=== PATIENT | female | born 1980 | race Caucasian/White ===

== ENCOUNTER 2024-03-27 04:06 | Observation (INO) | payer BC ==
[~2024-03-27] VITALS: Ht 162.6 cm; Wt 63.9 kg
[2024-03-27] VITALS (12 sets, daily range): BP systolic 90–121; BP diastolic 50–84
[2024-03-27] MEDS ORDERED: SODIUM CHLORIDE 0.9% 1,000 ML IV ONE (04:30)
[2024-03-27] MEDS ORDERED: MORPHINE SULFATE 4 MG/ML VIAL IV ONE ×2 (04:30→06:00)
[2024-03-27] MEDS ORDERED: ondansetron HCL 4 MG/2 ML VIAL IV ONE (04:30)
[2024-03-27 04:47] LABS: BASOPHILS 0.3 % (0-2); BILIRUBIN, URINE NEGATIVE (negative); BLOOD/HGB, URINE TRACE-I (Negative); HEMATOCRIT 38.8 % (35.0-50.0); HEMOGLOBIN 13.3 g/dL (12.0-18.0); KETONE, URINE SMALL (Negative); LEUK ESTERASE, URINE NEGATIVE (negative); LYMPHOCYTES 4.5 % (24-44); MCH 30.6 (27-36); MCHC 34.2 g/dl (30-36); MCV 89.5 fl (81-99); MONOCYTES 4.3 % (0-12); NEUTROPHILS 90.9 % (39-80); NITRITE, URINE NEGATIVE (negative); PLATELET COUNT 212 K/uL (140-440); RBC 4.34 M/ul (4.3-5.7); RDW 13.1 (10.5-15.0)
[2024-03-27 05:07] LABS: BACTERIA, URINE 1+ /hpf (negative); CASTS, URINE NONE SEEN \\lpf; COLLECTION TYPE, URINE CLEAN CATCH; CRYSTALS, URINE NONE SEEN (0-1+); EPITHELIAL CELLS, URINE SQUAMOUS 1+ /lpf (0-1+); REFLEX CULTURE, URINE No (No)
[2024-03-27 05:09] LABS: ALBUMIN 3.8 g/dL (3.4-5.0); ALBUMIN/GLOBULIN RATIO 1.19 (1.1-2.4); ANION GAP 14.5 (7-21); BILIRUBIN, TOTAL 0.7 ng/dL (0.2-1.0); BUN/CREATININE RATIO 14.28 (6.0-28.6); CALCIUM 8.5 mg/dL (8.5-10.1); CREATININE, SERUM 0.91 mg/dL (0.55-1.02); POTASSIUM 3.5 mmol/L (3.5-5.1)
[2024-03-27] MEDS ORDERED: CEFTRIAXONE/SODIUM CHLORIDE 2 GM/100 ML PIGGYBACK IV SCH (06:00)
[2024-03-27] MEDS ORDERED: ondansetron HCL 4 MG/2 ML VIAL IV PRN ×2 (06:00→07:00)
[2024-03-27] MEDS ORDERED: HYDROmorphone HCL 1 MG/ML SYR IV PRN ×2 (06:00→07:00)
[2024-03-27] MEDS ORDERED: DEXTROSE 5% - LACTATED RINGERS 1,000 ML IV SCH ×2 (06:00→07:00)
[2024-03-27] MEDS ORDERED: ACETAMINOPHEN 325 MG TAB PO PRN ×2 (06:00→07:00)
[2024-03-27] MEDS ORDERED: ACETAMINOPHEN 650 MG SUPP PR PRN (07:00)
[2024-03-27] MEDS ORDERED: PROCHLORPERAZINE EDISYLATE 10 MG/2 ML VIAL IV PRN (07:00)
--- NOTE | 2024-03-27 07:07 | NUR ---
BEDSIDE REPORT RECIEVED FROM VINCENT SMITH. PT AWAKE AND ALERT IN BED. VISITORS X2 IN ROOM. CALL LIGHT IN REACH, NO REQUESTS AT THIS TIME.
--- NOTE | 2024-03-27 07:08 | NUR ---
REPORT RECEIVED FROM FASHION CONSULTANT NURSE. PT. LAYING IN BED, EYES OPEN, FAMILY AT BEDSIDE. CALL LIGHT WITHIN REACH.
--- NOTE | 2024-03-27 07:31 | NUR ---
RECEIVED REPORT FROM VINCENT MIJARES FROM ED @ 5397. NC ARRIVED VIA STRETCHER, SELF TRANSFERED TO BED, RA, A/O. PT FATHER IN ROOM, PT SISTER IS EMPLOYED BY HOSPITAL. EDUCATED [employer] MAINFRAME DEVELOPER LIGHT, POC; DR JONES IN TO SEE PT WHILE THIS RN IN ROOM. ABX INFUSING FROM ED. IV LAC FLUSHES WELL. INTACT; PT STATED SHE WOULD LIKE SOMETHING FOR PAIN. REPORTED OFF TO AM VINCENT VILLANUEVA, AND IS AWARE OF THE NEED FOR PAIN MEDICATION.
[2024-03-27] MEDS ORDERED: CEFEPIME HCL/D5W 1 GM/100 ML PIGGYBACK IV SCH (08:00)
--- NOTE | 2024-03-27 08:00 | NUR ---
FULL ASSESSMENT COMPLETED AND MEDICATIONS ADMINISTERED. PT. COMPLAINS OF 6/10 PAIN. DILAUDID GIVEN FOR PAIN. FAMILY AT BEDSIDE. CALL LIGHT WITHIN REACH. PT. DENIES ANY OTHER NEEDS AT THIS TIME.
--- NOTE | 2024-03-27 08:02 | NUR ---
PATIENT IN BED RESTING AT THIS TIME. CALL LIGHT WITHIN REACH, NO FURTHER NEEDS AT THIS TIME.
[2024-03-27] MEDS ORDERED: PANTOPRAZOLE SODIUM 40 MG/10 ML VIAL IV SCH (09:00)
[2024-03-27] MEDS ORDERED: ENOXAPARIN SODIUM 40 MG/0.4 ML SYR SUB-Q SCH (09:00)
--- NOTE | 2024-03-27 09:05 | NUR ---
PATIENT IN DAY SURGERY DEPARTMENT AT THIS TIME. UNABLE TO COMPLETE ASSESSMENT.
[2024-03-27] MEDS ORDERED: ROCURONIUM BROMIDE 50 MG/5 ML SYR ONE (09:28)
[2024-03-27] MEDS ORDERED: ondansetron HCL 4 MG/2 ML VIAL ONE (09:28)
[2024-03-27] MEDS ORDERED: LIDOCAINE HCL 2% 5 ML SDV ONE ×2 (09:28→10:10)
[2024-03-27] MEDS ORDERED: propofoL 200 MG/20 ML VIAL ONE (09:28)
[2024-03-27] MEDS ORDERED: fentaNYL citrate 100 MCG/2 ML VIAL ONE (09:28)
[2024-03-27] MEDS ORDERED: DEXAMETHASONE SOD PHOS 4 MG/ML VIAL ONE (09:28)
[2024-03-27] MEDS ORDERED: ACETAMINOPHEN 1,000 MG/100 ML VIAL ONE (09:31)
--- NOTE | 2024-03-27 09:53 | CONS ---
[facility] [address], [place] [address] Signed DATE OF CONSULTATION: 03/27/2024 CHIEF COMPLAINT: Right lower quadrant abdominal pain. HISTORY OF PRESENT ILLNESS: Marisa is a 44-year-old female, who about half a day ago started to develop right lower quadrant abdominal pain with nausea. She came to emergency room for evaluation. Vital signs were stable. She is tender in the right lower quadrant. White count was elevated. CT scan confirmed a 10 mm appendix with some moderate periappendiceal inflammation and fluid. I have been asked to admit her as a general surgeon on-call. She has received IV fluids, Rocephin and Flagyl. Overall, she is feeling a little better. PAST MEDICAL HISTORY: Polycystic ovarian syndrome. PAST SURGICAL HISTORY: None. SOCIAL HISTORY: She does not smoke. She has an occasional drink. She is and has no children. She works for [employer]. She has no primary care provider. She has no shader and toner. She prefers the [facility]. Ranulfo Corona is her sister at [phone]. FAMILY HISTORY: None. REVIEW OF SYSTEMS: None. ALLERGIES: None. MEDICATIONS: Hormone replacement therapy per her pharmacist. PHYSICAL EXAMINATION: VITAL SIGNS: Her blood pressure is 123/80, heart rate 81, respiratory rate 18, temperature 98.6, she 97% on room air, she is 5 feet 4 inches and 61 kg with a body mass index of 23. GENERAL: Melania is a 44-year-old female , who appears healthy in her stated age. She Electronically Signed By: ROSARIO HERNANDEZ MD 03/27/24 0953 PATIENT NAME: MARISA NOEL CONSULTATION DATE OF : 78 REPORT #: [id number] PHYSICIAN: ROSARIO HERNANDEZ MD PCP: NO PRIMARY CARE PHYSICIAN REPORT IS CONFIDENTIAL AND NOT TO BE RELEASED WITHOUT AUTHORIZATION [facility] [address], [place] [address] Signed is not systemically ill or toxic. LUNGS: Clear to auscultation bilaterally. HEART: Regular rate and rhythm without murmurs. ABDOMEN: Soft and flat. She is tender in the right lower quadrant. LABORATORY DATA: Her white blood count 19.1, neutrophils 90. Electrolytes unremarkable. Urinalysis with some ketones. Liver function tests are negative. Beta-hCG is negative. Albumin 3.8. RADIOGRAPHIC STUDIES: CT scan and pelvis shows a 10 mm appendix with some moderate periappendiceal inflammation and fluid. ASSESSMENT AND PLAN: Melania is a 44-year-old female, who presents with acute appendicitis. She has been admitted, started on antibiotics and IV fluids. I have reviewed with her the above findings along with her sister and her dad. I also brought a brochure of the appendix. We have reviewed the location of function of the appendix. We have discussed laparoscopic versus open appendectomy. We have reviewed the expected intraop and postop course. There is risk including, but not limited to bleeding, infection, scarring, change in contour of the skin, damage to bowel, appendiceal stump leak, postoperative intraabdominal abscess, incisional hernias and other unforeseen comorbidities. She has expressed understanding and would like to proceed with surgery today. Rosario Hernandez MD ALB/MODL /[id number] cc: Rosario Hernandez MD Patient's Chart Copies: ROSARIO HERNANDEZ MD ~ Electronically Signed By: ROSARIO HERNANDEZ MD 03/27/24 0953 PATIENT NAME: MARISA NOEL CONSULTATION DATE OF : 78 REPORT #: [id number] PHYSICIAN: ROSARIO HERNANDEZ MD PCP: NO PRIMARY CARE PHYSICIAN REPORT IS CONFIDENTIAL AND NOT TO BE RELEASED WITHOUT AUTHORIZATION
--- NOTE | 2024-03-27 09:53 | NUR ---
PT LEAVES UNIT WITH VINCENT EVANS TO OR FOR PROCEDURE.
[2024-03-27] MEDS ORDERED: ENSKYCE1 EACH PO (10:05)
[2024-03-27] MEDS ORDERED: LIDOCAINE 1% W/ EPI 1:200,000 30 ML SDV ONE (10:05)
[2024-03-27] MEDS ORDERED: BIOTIN PLUS KE1 EACH PO (10:05)
[2024-03-27] MEDS ORDERED: BUPIVACAINE HCL 0.25% 50 ML MDV ONE (10:06)
[2024-03-27] MEDS ORDERED: VITAMIN D325 MC4 PO (10:06)
[2024-03-27] MEDS ORDERED: WOMEN MULTIVIT1 EACH PO (10:06)
--- NOTE | 2024-03-27 10:06 | NUR ---
MED REC COMPLETE
[2024-03-27] MEDS ORDERED: MAGNESIUM SULFATE 1 GM/2 ML VIAL ONE (10:10)
[2024-03-27] MEDS ORDERED: KETAMINE in NS 50 MG/5 ML SYR ONE (10:10)
[2024-03-27] MEDS ORDERED: SCOPOLAMINE 1 MG/3 DAYS PATCH 1 EACH TDSY ONE (10:10)
[2024-03-27] MEDS ORDERED: METOCLOPRAMIDE HCL 10 MG/2 ML SDV ONE (10:10)
[2024-03-27] MEDS ORDERED: SODIUM CHLORIDE 0.9% 40 ML IV ONE (10:11)
[2024-03-27] MEDS ORDERED: dexmedeTOMIDine HCl 200 MCG/2 ML VIAL ONE (10:12)
[2024-03-27] MEDS ORDERED: KETOROLAC TROMETHAMINE 30 MG/ML VIAL ONE (10:19)
[2024-03-27] MEDS ORDERED: SUGAMMADEX SODIUM 200 MG/2 ML ML ONE (11:32)
--- NOTE | 2024-03-27 11:39 | NUR ---
UR CLINICAL REVIEW: [facility]- MEETS INPT CRITERIA SELF PAY- WILL ASSESS FOR FINANCIAL SERVICES OBS 03/27/24 @ 0701 ORDER MATCHES REG NO AUTH REQUIRED PATIENT IS SELF PAY DISCHARGE TO HOME WHEN STABLE 03/28/24
--- NOTE | 2024-03-27 11:59 | NUR ---
03/27/24 Danisha Lockwood 1148- PT ARRIVES TO PACU EASILY AROUSABLE TO VOICE. PT FALLS INSTANTLY BACK TO SLEEP WHEN NOT BEING TALKED TO. RESP EVEN AND UNLABORED. OXYGEN SAT HIGH 90'S ON RA. 1152- PT IS ABLE TO ANSWER QUESTIONS. PT REPORTS NO PAIN OR NAUSEA. PT STATES SHE DOES NOT WANT TO OPEN HER EYES SHE DOES NOT WANT TO GET NAUSEOUS.
[2024-03-27] MEDS ORDERED: IBUPROFEN 800 MG TAB PO PRN (12:15)
[2024-03-27] MEDS ORDERED: HYDROCODONE/APAP 10/325 1 TAB PO PRN (12:15)
--- NOTE | 2024-03-27 12:29 | NUR ---
PT ARRIVED TO UNIT. VERBAL BEDSIDE REPORT RECEIVED FROM KAY. VITAL SIGNS STABLE. 3 LAP SITES, CLEAN, DRY, INTACT. ABDOMEN RIGID, TENDER, FLAT. BOWEL TONES HYPERACTIVE. HRR. AAO. CPOX IN PLACE, ICE TO ABDOMEN. PT SAT 95% ON RA. LUNGS CLEAR. DENIES NAUSEA OR PAIN AT THIS TIME. SCDS IN PLACE BLE.
--- NOTE | 2024-03-27 12:43 | NUR ---
VISITED DURING SPIRITUAL CARE ROUNDS. PT JUST RETURNING FROM SURGER; SLEEPY. DID NOT DISTURB. PROVIDED PRAYER.
--- NOTE | 2024-03-27 13:35 | NUR ---
PT TOLERATING WATER PO. DENIES PAIN OR NAUSEA AT THIS TIME. DESCRIBES SENSATION IN ABDOMEN , "BUBBLY." CPOX REMAINS IN PLACE. SCDS TO BLE FROM TOES TO KNEE. ICE OVER ABDOMEN INCISIONS. INCISION DRESSINGS X3 REMAIN CLEAN, DRY AND INTACT. PT DENTIES FLATUS.
[2024-03-27] MEDS ORDERED: AUGMENTIN 500-1 EACH PO (13:39)
[2024-03-27] MEDS ORDERED: HYDROCODON-ACE1 EAC8 PO (13:39)
--- NOTE | 2024-03-27 14:40 | NUR ---
Pt. laying in bed visiting with visitors in room. Pt. denies any pain or nausea at this time. Pt. up to void with TRANSFORM[employer] SH[employer] SUPERVISOR and voided 200mL. Stated she felt "weird" while she was up. Pt. denies any dizziness and states not feeling "weird" anymore after getting back to bed. 3 lap sites clean, dry and intact. Pt agreed to try to eat jello. Ice water refilled and new ice pack given. Call light within reach. Pt. denies any needs at this time.
--- NOTE | 2024-03-27 15:17 | NUR ---
Pt. up to restroom with standby assist. Voided 300 of clear, yellow urine. Pt. stated this time felt better and that she didn't feel dizzy or weird. Pt. ate jello and is now eating saltine crackers before trying PO pain medication. Pt. denies any pain at this time. Respirations even and unlabored. Call light and all needed items within reach. Pt. denies any needs at this time.
--- NOTE | 2024-03-27 15:39 | NUR ---
PT TOLERATED PO INTAKE WELL AT THIS TIME. DENIES NAUSEA. PT TAKES PO PAIN MEDICATION, SEE EMAR. PT VOIDING. VSS. ICE PACK TO ABDOMEN, SCDS IN PLACE TO BLE. NO REQUESTS AT THIS TIME.
--- NOTE | 2024-03-27 16:31 | NUR ---
DR. JONES NOTIFIED VIA PHONE THAT PT HAS BET DISCHARGE CRITERIA, DR. JONES CONFIRMS OKAY TO DISCHARGE NOW.
--- NOTE | 2024-03-27 16:45 | NUR ---
VSS, IV REMOVED, CATHETER INTACT. PT. DENIES ANY PAIN. DISCHARGE TEACHING DONE TO PT. PT. VERBALIZED UNDERSTANDING AND DENIED ANY QUESTIONS. PT. WALKED OUT TO FAMILY VEHICLE WITH SBA.
--- NOTE | 2024-03-28 08:08 | OR ---
[facility] [address], [place] [address] Signed DATE OF OPERATION: 03/27/2024 SURGEON: Rosario Hernandez MD PREOPERATIVE DIAGNOSIS: Acute appendicitis. POSTOPERATIVE DIAGNOSIS: Acute appendicitis. PROCEDURES: Laparoscopic appendectomy. ESTIMATED BLOOD LOSS: None. FINDINGS: Marisa indeed had acute appendicitis. She had some turbid fluid around the cecum as well. Her appendix was indeed behind the cecum up the right gutter a bit consistent with the CT scan. INDICATIONS: Marisa is a 44-year-old female who remains very healthy and exercises every day. She noticed some pain in the right lower quadrant with some nausea for about half a day. She came to emergency room for evaluation. She was tender in that area with an elevated white blood cell count. Beta-hCG was negative. CT scan of abdomen and pelvis showed a 10 mm appendix, but she had moderate periappendiceal inflammation and fluid. I have been asked to admit her as a general surgeon deputy sheriff civil division early this morning. She has received Rocephin and Flagyl along with IV fluids and pain control. Overall, she is a little better. I met with Marisa and her sister and father here in the hospital. I brought my brochure with respect to appendicitis. We went through it page by page. She understands the location and function of the appendix, we discussed laparoscopic versus open appendectomy. She understands expected intraop and postop course. There is risk including, but not limited to bleeding, infection, scarring, change in contour of the skin, damage to bowel, appendiceal stump leak, postoperative intraabdominal abscess, incisional hernias and other unforeseen comorbidities. She had expressed understanding and wished to proceed. PROCEDURE IN DETAIL: Marisa was taken in the operating room and placed in the supine position under general Electronically Signed By: ROSARIO HERNANDEZ MD 03/28/24 0808 PATIENT NAME: MARISA NOEL OPERATIVE REPORT DATE OF : 78 REPORT #: [id number] PHYSICIAN: ROSARIO HERNANDEZ MD PCP: NO PRIMARY CARE PHYSICIAN REPORT IS CONFIDENTIAL AND NOT TO BE RELEASED WITHOUT AUTHORIZATION [facility] [address], [place] [address] Signed endotracheal tube anesthesia. She was already on preoperative antibiotics along with her subcutaneous Lovenox. SCDs were in place. A Gordon catheter was inserted with return of clear yellow urine. She was prepped and draped in the usual sterile fashion. All trocars were placed in the usual positions under direct visualization of camera without difficulty. We followed the anterior taenia coli on her right colon down to the base of the appendix. There was some fluid in that area, which we suctioned out. Indeed, her appendix went posteriorly and then up behind the cecum and into the right gutter just little ways. It took just a few minutes to free that up with the help of the cautery. We then freed up the base of the appendix where it joins the cecum. We divided the appendix from the cecum with our linear stapler. We then used a vascular load on linear stapler to divide the mesoappendix. There was excellent hemostasis on both staple lines. After this, the appendix was placed into an EndoCatch bag and taken out through the right subcostal trocar site. We used our laparoscopic suturing device to pass 0 Vicryl suture on either side of the fascia of the right subcostal trocar site. This was tied down to close this fascia primarily. After this, the gas was allowed to escape and the remaining two trocars were removed. We closed the fascia of the supraumbilical trocar site with interrupted simple and [id number] 0 Vicryl sutures. Local anesthetic was injected into all three trocar sites. The skin and dermis each trocar site was closed with interrupted 3-0 subcuticular Monocryl suture after irrigating all three trocar sites. We used benzoin and 0.5 inch Steri-Strips on her incisions along with dry gauze and tape. Marisa was then awakened from her anesthesia, extubated in the OR, and taken into recovery room in stable condition. Her Gordon catheter had been removed without difficulty. Rosario Hernandez MD [facility]/MODL /[id number] cc: Rosario Hernandez MD Copies: ROSARIO HERNANDEZ MD ~ Electronically Signed By: ROSARIO HERNANDEZ MD 03/28/24 0808 PATIENT NAME: MARISA NOEL OPERATIVE REPORT DATE OF : 78 REPORT #: [id number] PHYSICIAN: ROSARIO HERNANDEZ MD PCP: NO PRIMARY CARE PHYSICIAN REPORT IS CONFIDENTIAL AND NOT TO BE RELEASED WITHOUT AUTHORIZATION
[2024-03-28] MEDS ORDERED: PANTOPRAZOLE SODIUM 40 MG TABEC PO SCH (09:00)
--- NOTE | 2024-04-03 16:02 | PATH ---
[facility] [address] [facility] [place], [place] [address] Signed SPECIMEN(S): A APPENDIX SPECIMEN SOURCE: A. APPENDIX CLINICAL HISTORY: Appendicitis acute FINAL PATHOLOGIC DIAGNOSIS: Appendix, appendectomy: - Acute appendicitis with periappendicitis BRP MICROSCOPIC EXAMINATION: Histologic sections of all submitted blocks are examined by light microscopy. These findings, together with the gross examination, support the pathologic diagnosis. GROSS DESCRIPTION: The specimen, labeled and designated "Brown, appendix," is received in formalin and consists of Specimen: Appendix with mesoappendix. Dimensions: 5.5 x 2.2 x 1.0 cm. Serosa: Red-brown. Defect: Not grossly identified. Inking: Staple line and mesoappendix margin inked Blue. Mucosa: [place]-cast[place]eda to red-brown. Fecalith: Not grossly identified. Additional: None. Mule Rider sections are submitted in (A1). VB (under the direct supervision of a pathologist) The Gross Description was prepared using a voice recognition system. The report was reviewed for accuracy; however, sound-alike word errors, addition and/or deletions may occur. If there is any question about this report, please contact Client Services. ADDITIONAL NOTES: Immunohistochemical and/or in situ hybridization studies if performed in this case included appropriate positive controls that reacted as expected. This test was developed and its performance characteristics determined by [facility]. It has not been cleared or PATIENT NAME: JOHN NOELN MASSIEL PATHOLOGY DATE OF : 78 REPORT #: [id number] PHYSICIAN: SOM PATHOLOGY PCP: NO PRIMARY CARE PHYSICIAN REPORT IS CONFIDENTIAL AND NOT TO BE RELEASED WITHOUT AUTHORIZATION [facility] [address] [place] [address] Signed approved by the U.S. Food and Drug Administration. The FDA has determined that such clearance or approval is not necessary. This test is used for clinical purposes. It should not be regarded as investigational or for research. [facility] is certified under the Clinical Laboratory Improvement Amendments of 1988 (CLIA) as qualified to perform high complexity clinical laboratory testing. PERFORMING LABORATORY: Technical component was performed by [facility], [address] [place] [id number] (CLIA# [id number]). Professional interpretation was performed by [facility] [address] [place] [id number] Diagnostician: Cody Gonzales MD Pathologist Electronically Signed 04/03/2024 Copies: ~ PATIENT NAME: CUCO NOEL PATHOLOGY DATE OF : 78 REPORT #: [id number] PHYSICIAN: SOM PATHOLOGY PCP: NO PRIMARY CARE PHYSICIAN REPORT IS CONFIDENTIAL AND NOT TO BE RELEASED WITHOUT AUTHORIZATION
== END 2024-03-27 16:50 | disposition home or self-care (01) ==
LOC: ED 04:06 → MS 04:08
PROVIDERS: Family Medicine; ADMIT Colon & Rectal Surgery; ATTEND Colon & Rectal Surgery
PROC: 0DTJ0ZZ Resection of Appendix, Open Approach (ICD-10-PCS; principal; 2024-03-27 10:30)
DX: K35.80 Unspecified acute appendicitis (principal); E28.2 Polycystic ovarian syndrome
CPT/HCPCS: 00840; 36415; 74177; 80053; 81001; 83690; 84703; 85025; 96372; 96375; 96376; 99285-25; A9270; G0378; J0131; J0692; J0696; J1100; J1170; J1650; J1885; J2001; J2270; J2405; J2470; J2704; J2765; J3010; J3475; J3490; J7030; J7121; Q9967